=== PATIENT | male | born 1945 | race Caucasian/White ===

== ENCOUNTER 2020-09-05 20:30 | Observation (INO) | payer OTHER, MEDICAID ==
[~2020-09-05] VITALS: Ht 167.6 cm; Wt 75.3 kg
[2020-09-05 20:31] VITALS: BP 131/64
--- NOTE | 2020-09-05 20:35 | NUR ---
NITRO PASTE REMOVED FROM CHEST PER DR TRUJILLO
[2020-09-05 21:10] LABS: ABSOLUTE BASOPHILS 0.1 thou/uL (0.0-0.2); ABSOLUTE EOSINOPHILS 0.1 thou/uL (0.0-0.7); ABSOLUTE LYMPHOCYTES 2.9 thou/uL (0.8-5.3); ABSOLUTE MONOCYTES 0.9 thou/uL (0.0-1.2); ABSOLUTE NEUTROPHILS 4.3 thou/uL (1.6-8.1); EOSINOPHILS 1.4 %; HEMATOCRIT 39.2 % (42.0-52.0); HEMOGLOBIN 13.9 gm/dL (14.0-18.0); LYMPHOCYTES 35.2 %; MCH 32.9 pg (26.0-34.0); MCHC 35.3 g/dL (28.0-37.0); MCV 93.1 fL (80.0-100.0); MONOCYTES 10.5 %; MPV 7.7 fl. (7.2-11.1); NUCLEATED RBCS 0 /100WBC; PLATELET COUNT* 255 thou/uL (150-400); POLYS 51.9 %; RBC 4.21 mil/uL (4.50-6.00); RDW-CV 12.8 % (10.5-14.5); WBC 8.3 thou/uL (4.0-11.0)
[2020-09-05 21:19] LABS: CALCIUM 8.9 mg/dL (8.5-10.1); POTASSIUM 3.9 mmol/L (3.5-5.1)
[2020-09-05 21:22] LABS: APTT 23.4 Seconds (25.0-31.3); PROTIME 10.6 Seconds (9.20-11.50)
[2020-09-05 21:29] LABS: ALBUMIN 3.8 g/dL (3.4-5.0); TOTAL BILIRUBIN 0.5 mg/dL (<0.1-1.0); TOTAL PROTEIN 7.5 g/dL (6.4-8.2)
[2020-09-05 23:27] LABS: URINE BILIRUBIN NEGATIVE (Negative); URINE BLOOD NEGATIVE (Negative); URINE CLARITY CLEAR; URINE COLOR YELLOW; URINE GLUCOSE-RANDOM 3+ (Negative); URINE KETONES NEGATIVE (Negative); URINE LEUKOCYTES-REFLEX NEGATIVE (Negative); URINE NITRITE-REFLEX NEGATIVE (Negative); URINE PROTEIN NEGATIVE (Negative); URINE UROBILINOGEN 0.2 E.U./dl (0.2-1.0)
[2020-09-06] VITALS (8 sets, daily range): BP systolic 110–155; BP diastolic 56–75
--- NOTE | 2020-09-06 06:47 | NUR ---
RECEIVED REPORT AND ASSUMED CARE AT 0150. PT TRANSPORTED FROM ED TO ROOM 215 BY NURSING. ADMISSION AND ASSESSMENT COMPLETED CHARTED. pT REPORTS NOT HAVING HIS MEDICATION LIST FROM HOME. HIS DAUGHTER WILL HAVE IT AND WILL BE HERE IN THE MORNING. PT ORIENTATED TO ROOM, CALL LIGHT, FALL POLICY. NO ACUTE CHANGES ON THIS SHIFT, PT DENIES CHEST PAIN. PT REPORTS PAIN IN HIS LEGS, OFFERED PO PAIN MEDICATION ORDERED. PT DECLINED STATING THAT THE PAIN PILLS DON'T SEEM TO WORK. PER REPORT, PATIENT ARRIVED WITH FENTANYL PATCH, THIS WAS REMOVED BY ER STAFF, PT REPORTS THIS PATCH EFFECTIVE FOR PAIN RELIEF. ROUNDING COMPLETED AND ALL NEEDS MET
[2020-09-06 13:14] LABS: CHOLESTEROL 162 mg/dL (<200); HDL CHOLESTEROL 64 mg/dL (>40); LDL CHOLESTEROL 76 mg/dL (<100); SERUM ASSESSMENT Clear; TC:HDL 2.5 Ratio (Not establshd); TRIGLYCERIDE 111 mg/dL (<150); VLDL 22 mg/dL (<40)
--- NOTE | 2020-09-06 13:53 | EKG ---
[place] [address] ELECTROCARDIOGRAM REPORT Name: MELISSAGEORGIE MARIE Marlee Room: [address]#: [id number] Admission: 09/06/20 Attend Phys: Jodi Ayon, Discharge: Date of : 45 Date of Service: 09/05/202033 Report #: [id number] THIS REPORT FOR: //name// [facility] ED Test Date: 2020-09-05 Test Time: 20:34:18 Pat Name: GEORGIE TORRES Department: Room: [facility] Gender: M Material Control Supervisor: : 1945 Requested By: Nat Weaver Order Number: [id number] MD: Adán Cat Measurements Intervals [place] Rate: 67 P: 45 IA: 141 QRS: -35 QRSD: 93 T: 62 QT: 389 QTc: 411 Interpretive Statements Sinus rhythm Left axis deviation Low voltage, extremity leads Abnormal R-wave progression, late transition Baseline wander in lead(s) V6 No previous ECG available for comparison Electronically Signed On 09-06-2020 13:53:17 CDT by Adán Cat [email or web address] <ELECTRONICALLY SIGNED> By: Adán Cat MD, FAC 09/06/20 1353 33 33 Adán Cat MD, FAC /EPI
[2020-09-06] MEDS ORDERED: MAGNESIUM250 M1 PO (16:32)
[2020-09-06] MEDS ORDERED: CELEBREX 200 M200 MG PO (16:32)
[2020-09-06] MEDS ORDERED: JARDIANCE25 MG PO (16:33)
[2020-09-06] MEDS ORDERED: PLAVIX 75 MG TA75 MG PO (16:33)
[2020-09-06] MEDS ORDERED: LISINOPRIL2.5 M1 PO (16:34)
[2020-09-06] MEDS ORDERED: KLOR-CON 1010 MEQ PO (16:35)
[2020-09-06] MEDS ORDERED: LEVOTHYROXINE75 MC1 PO (16:35)
[2020-09-06] MEDS ORDERED: VITAMIN D21250 MCG PO (16:36)
[2020-09-06] MEDS ORDERED: FAMOTIDINE 40 M40 M1 PO (16:37)
[2020-09-06] MEDS ORDERED: TOPROL XL25 MG PO (16:37)
[2020-09-06] MEDS ORDERED: DULOXETINE HCL30 MG PO (16:38)
[2020-09-06] MEDS ORDERED: LEXAPRO 10 MG T10 M1 PO (16:38)
[2020-09-06] MEDS ORDERED: BAYER CHEWABLE81 MG PO (16:39)
[2020-09-06] MEDS ORDERED: DURAGESIC1 EACH TRANSDERM (16:41)
[2020-09-07 07:55] LABS: HEMATOCRIT 41.3 % (42.0-52.0); HEMOGLOBIN 14.5 gm/dL (14.0-18.0); MCH 33.1 pg (26.0-34.0); MCHC 35.2 g/dL (28.0-37.0); MPV 7.9 fl. (7.2-11.1); RBC 4.39 mil/uL (4.50-6.00); RDW-CV 12.8 % (10.5-14.5); WBC 9.2 thou/uL (4.0-11.0)
[2020-09-07 08:00] VITALS: BP 122/60
[2020-09-07 08:50] LABS: CALCIUM 9.2 mg/dL (8.5-10.1); POTASSIUM 4.3 mmol/L (3.5-5.1)
[2020-09-07 12:00] VITALS: BP 111/62
--- NOTE | 2020-09-07 12:24 | NUR ---
Plan dc home today post stress test
--- NOTE | 2020-09-07 14:00 | CARDNUC ---
[place] [address] CARDIAC NUCLEAR IMAGING REPORT Name: GEORGIE TORRES Room: [address] M.R.#: [id number] Admission: 09/06/20 Attend Phys: Jodi Ayon, Discharge: Date of : 45 Date of Service: 09/07/20 1400 Report #: [id number] THIS REPORT FOR: cc: Physician not on staff Physician not on staff Tang Rene MD [facility] ~ APPROVED REPORT Study performed: 09/07/2020 09:16:21 Exam: Nuclear Stress Test Indication: Chest pain Patient Location: Out-Patient Stress Tech: Olive Mosley Stress Nurse: Frances Shirley RN Ht: 5 ft 6 in Wt: 165 lbs BSA: 1.84 m2 BMI: 26.62 Medical History Medical History: CAD s/p CT, CAD s/p stent, Diabetes, HTN, Hyperlipidemia Medications: asa-81 clodiogrel lisinopril, metoprolol Allergies: sulfa , promethazine Cardiac Risk Factors: Age, DM, HTN, Hyperlipidemia, Past Smoker Previous Cardiac Procedures: PCI Exercise History: Sedentary Meds Held (24 hrs): metoprolol Stress Test Details Stress Test: Pharmacologic stress testing performed using 0.4 mg of regadenoson per 5 mL given IV over 10 seconds. Reason for pharmacologic stress test: physical limitation. HR Resting HR: 64 bpm Max Heart Rate (APMHR): 146 bpm Max HR Achieved: 82 bpm Target HR (85% APMHR): 124 bpm % of APMHR: 56 Recovery HR: 62 bpm BP Resting BP: 108/52 mmHg Max BP: 83/44 [place] [address] CARDIAC NUCLEAR IMAGING REPORT Name: GEORGIE TORRES Room: [address]#: [id number] Admission: 09/06/20 Attend Phys: Jodi Ayon, Discharge: Date of : 45 Date of Service: 09/07/20 1400 Report #: [id number] ECG Resting ECG: Sinus Rhythm Stress ECG: Sinus Rhythm ST Change: None Arrhythmia: None Recovery ECG: Sinus Rhythm Recovery ST Change: None Recovery Arrhythmia: None Clinical Reason for Termination: Completed protocol The patient tolerated Lexiscan infusion without significant cardiac symptoms. Nurse Comments pt had hypotensive episode after reciving lexiscan BP dropped as low as 64 systolic and did not rebound back up. NS was given WO approx 750 ml. 60 mg Caffeine ivp was administered. Pt co chest pain but had no ekg changes. 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 Pt was later given 2mmg norphing ivp for back pain per Dr Moore order Stress ECG Conclusion The baseline twelve-lead EKG shows sinus rhythm without significant ST segment or T wave abnormality. EKGs obtained during and post Lexiscan infusion show sinus rhythm with no significant ST segment or T wave changes when compared to baseline. There were no stress-induced arrhythmias. NM EXAM: Myocardial Perfusion REST/STRESS Imaging Protocol: Rest Tc-99m/Stress Tc-99m 1 day Resting Data Rest SPECT myocardial perfusion imaging was performed in supine position 30 minutes following the intravenous injection of 9.2 mCi of Tc-99m Sestamibi. Time of rest injection: 08:00 The images were gated to evaluate regional wall motion and calculate left ventricular ejection fraction. Administration Route: IV Administration Site: Left AC Pharmacologic Stress Pharmacologic stress test was performed by injecting Regadenoson 0.4 mg IV push followed by the intravenous injection of 29[place]3 [place] [address] CARDIAC NUCLEAR IMAGING REPORT Name: GEORGIE TORRES Room: [address]#: [id number] Admission: 09/06/20 Attend Phys: Jodi Ayon, Discharge: Date of : 45 Date of Service: 09/07/20 1400 Report #: [id number] Tc-99m Sestamibi. Time of stress injection: 09:45 Administration Route: IV Administration Site: Left AC Heart Rate at time of stress injection: 83 bpm. Gated Stress SPECT was performed 40 minutes after stress injection. The images were gated to evaluate regional wall motion and calculate left ventricular ejection fraction. Study Quality Study: Good Artifact: Mild Diaphragmatic artifact Study Data At rest, the left ventricular ejection fraction was 71%.. Post stress, the left ventricular ejection was 70%.. TID = 0.97. Perfusion Perfusion images obtained at rest show mild photopenia of the basal to mid inferior wall that resolves with post-rest imaging suggesting diaphragmatic attenuation artifact. There were no other significant fixed or reversible defects. Wall Motion Normal left ventricular wall motion. Nuclear Conclusion ECG Findings: negative for ischemia Clinical Findings: negative for ischemia Nuclear Findings: negative for ischemia Exercise Capacity: not assessed Left Ventricular Function: normal Risk Study: low Perfusion images show no defect to suggest infarct or ischemia. Left ventricular systolic function appears normal on gated studies. This is a low risk study. <Conclusion> The baseline twelve-lead EKG shows sinus rhythm without significant ST segment or T wave abnormality. EKGs obtained during and post Lexiscan infusion show sinus rhythm with [place] [address] CARDIAC NUCLEAR IMAGING REPORT Name: GEORGIE TORRES Room: [address] M.R.#: [id number] Admission: 09/06/20 Attend Phys: Jodi Ayon, Discharge: Date of : 45 Date of Service: 09/07/20 1400 Report #: [id number] T wave changes when compared to baseline. There were no stress-induced arrhythmias. <ELECTRONICALLY SIGNED> By: Tang Rene MD, FACC 09/07/20 1400 99 99 Tang Rene MD, FACC /INF
[2020-09-07] MEDS ORDERED: HYDROCODON-ACE1 EAC7 PO (15:36)
[2020-09-07] MEDS ORDERED: GABAPENTIN 100100 MG PO (15:36)
[2020-09-07 15:41] VITALS: BP 111/62
== END 2020-09-07 16:52 | disposition home or self-care (01) ==
LOC: M.ERS 20:30 → M.TBA-ER 09-06 00:01 → M.2W 09-06 00:01
PROVIDERS: Family Medicine; Personal Emergency Response Attendant; Registered Nurse; ADMIT Internal Medicine; ATTEND Internal Medicine
DX: R07.89 Other chest pain (principal); Z20.822 Contact with and (suspected) exposure to COVID-19; I10 Essential (primary) hypertension; I25.10 Atherosclerotic heart disease of native coronary artery without angina pectoris; M54.42 Lumbago with sciatica, left side; E87.1 Hypo-osmolality and hyponatremia; E11.9 Type 2 diabetes mellitus without complications; Z87.891 Personal history of nicotine dependence; Z79.84 Long term (current) use of oral hypoglycemic drugs; Z79.82 Long term (current) use of aspirin; Z79.899 Other long term (current) drug therapy